=== PATIENT | male | born 1965 | race Caucasian/White ===

== ENCOUNTER 2020-04-26 12:55 | Emergency (ER) | payer OTHER, SELFPAY ==
[2020-04-26 12:59] VITALS: BP 189/107; PULSE 83; RESP 16; TEMP 36.9; O2SAT 99; BMI 31.4
--- NOTE | 2020-04-26 13:04 | DI.RAD.S_ITS ---
PROCEDURE: XR SHOULDER RT MIN 2V INDICATIONS: fall TECHNIQUE: 3 views of the shoulder were acquired. COMPARISON: None. FINDINGS: Bones: No fractures or dislocations. No suspicious bony lesions. Visualized ribs appear intact. Periarticular osteophyte formation at the acromioclavicular and glenohumeral joints. Soft tissues: No suspicious soft tissue calcifications. IMPRESSION: Osteoarthritis. No acute fracture. No osseous lesion. If symptoms and/or clinical suspicion for pathology persist, further assessment with repeat, or advanced imaging (e.g., CT, MRI, or bone scan) may be helpful for further assessment. Dictated by: Dmitry Gamble M.D. on 04/26/2020 at 12:37 Approved by: Dmitry Gamble M.D. on 04/26/2020 at 12:37
[2020-04-26] MEDS: CYCLOBENZAPRINE 10 MG TABLET PO (14:11)
[2020-04-26] MEDS: KETOROLAC 60 MG/2 ML VIAL 30 MG IM (14:12)
--- NOTE | 2020-04-26 14:37 | ED_ITS ---
HPI - Extremity Injury (Upper) <CAYETANO Wynne - Last Filed: 04/26/20 19:44> General Chief Complaint: Extremity Injury, Upper Stated Complaint: Rt shoulder pain Time Seen by Provider: 04/26/20 13:50 Source: patient Mode of arrival: Ambulatory Limitations: no limitations History of Present Illness HPI narrative: The patient is a 55-year-old male nonsmoker who denies pertinent medical history presents with a chief complaint of right shoulder pain. He states he slipped off a chair backwards yesterday, landed directly on his right shoulder. Today is decreased range of motion and pain. He did not pass out, did not hit his head, denies any neck or back pain. He took ibuprofen 800 mg last night for his pain, but ran out of his prescription at that time. He does have history of an injury to his right shoulder. Related Data Previous Rx's Medication Instructions Recorded cyclobenzaprine 10 mg PO TID PRN #20 tab 04/26/20 ketorolac 10 mg PO TID PRN #15 tab 04/26/20 Allergies Allergy/AdvReac Type Severity Reaction Status Date / Time No Known Drug Allergies Allergy Verified 04/26/20 13:03 Review of Systems <[facility] - Last Filed: 04/26/20 19:44> Review of Systems Narrative: GENERAL: Denies chills, fatigue, malaise, fever, sweats. HEENT: Denies sinus pain, ear pain, sore throat, difficulty swallowing, dizziness. RESPIRATORY: Denies dyspnea, cough, wheezing, hemoptysis, sputum. CARDIOVASCULAR: Denies chest pain, palpitations, orthopnea, edema, GASTROINTESTINAL: Denies nausea, vomiting, abdominal pain, diarrhea, constipation, melena. : Denies dysuria, frequency, incontinence, hematuria, urinary retention. MUSCULOSKELETAL: See HPI SKIN: Denies rash, skin lesions, or other NEUROLOGIC: Denies weakness, headache, numbness, change in speech, confusion, seizures, incoordination. PSYCHIATRIC: No concerning psychosocial issues. 12 point review of systems is negative except for those stated above Patient History <CAYETANO Wynne - Last Filed: 04/26/20 19:44> Social History Smoking Status: Never smoker Smoking Status: Never smoker alcohol intake frequency: 0-2 drinks per day Substance Use Type: does not use Exam <RUBEN Wynne-[facility] - Last Filed: 04/26/20 19:44> Narrative Exam Narrative: GENERAL: This is a well-nourished, well-developed patient, in no acute distress HEAD: Atraumatic. Normocephalic. No temporal or scalp tenderness. EYES: Pupils equal round and reactive. Extraocular motions intact. No scleral icterus. No injection or drainage. ENT: Nose without bleeding, purulent drainage or septal hematoma. Wearing mask. Airway patent. NECK: Trachea midline. No JVD or lymphadenopathy. Supple, nontender, no meningeal signs. CARDIOVASCULAR: Regular rate and rhythm RESPIRATORY: No cough. No increased respiratory effort. No accessory muscle use. EXTREMITIES: Positive right radial pulse. Able to pronate supinate right arm. Capillary refill less than 2 seconds all fingers right hand. Able to extend and flex shoulder to approximately 30-45 degrees each. Decreased horizontal extension noted. Passive range of motion full. BACK: Nontender without deformity or crepitance. No flank tenderness. No pain to CT or L-spine palpation. NEURO: AOx3. SKIN: No rash or erythema on visible skin no erythema ecchymosis laceration or abrasion noted right shoulder. Initial Vital Signs Initial Vital Signs: Vital Signs Temperature 98.5 F 04/26/20 12:59 Pulse Rate 83 04/26/20 12:59 Respiratory Rate 16 04/26/20 12:59 Blood Pressure 189/107 H 04/26/20 12:59 Pulse Oximetry 99 04/26/20 12:59 <Oseas Nunez MD - Last Filed: 04/26/20 19:47> Initial Vital Signs Initial Vital Signs: Vital Signs Temperature 98.5 F 04/26/20 12:59 Pulse Rate 83 04/26/20 12:59 Respiratory Rate 16 04/26/20 12:59 Blood Pressure 189/107 H 04/26/20 12:59 Pulse Oximetry 99 04/26/20 12:59 Scores <LENNOX Wynne - Last Filed: 04/26/20 19:44> GCS [place] coma scale eye opening: Spontaneous [place] coma scale verbal response: Orientated [place] coma scale motor response: Obey commands [place] coma scale total score: 15 Nexus Score for C-Spine Focal Neurologic deficit present: No Midline spinal tenderness present: No Altered level of conciousness present: No Intoxication present: No Distracting Injury Present: No Nexus Criteria for C-spine: 0 Course <LENNOX Wynne - Last Filed: 04/26/20 19:44> Orders Ordered: ED Orders 04/26/20 13:04 XR shoulder RT min 2V Stat Discontinued Medications Cyclobenzaprine HCl (Flexeril) 10 mg PO NOW ONE Stop: 04/26/20 14:06 Last Admin: 04/26/20 14:11 Dose: 10 mg Documented by: ADARSH Ketorolac Tromethamine (Toradol) 30 mg IM NOW ONE Stop: 04/26/20 14:06 Last Admin: 04/26/20 14:12 Dose: 30 mg Documented by: ADARSH Vital Signs Vital signs: Vital Signs - 8 hr 04/26/20 12:59 04/26/20 14:44 Temperature 98.5 F Pulse Rate 83 89 Respiratory Rate 16 14 Blood Pressure 189/107 H 151/82 H Pulse Oximetry 99 99 <Oseas Nunez MD - Last Filed: 04/26/20 19:47> Orders Ordered: ED Orders 04/26/20 13:04 XR shoulder RT min 2V Stat Discontinued Medications Cyclobenzaprine HCl (Flexeril) 10 mg PO NOW ONE Stop: 04/26/20 14:06 Last Admin: 04/26/20 14:11 Dose: 10 mg Documented by: ADARSH Ketorolac Tromethamine (Toradol) 30 mg IM NOW ONE Stop: 04/26/20 14:06 Last Admin: 04/26/20 14:12 Dose: 30 mg Documented by: ADARSH Vital Signs Vital signs: Vital Signs - 8 hr 04/26/20 12:59 04/26/20 14:44 Temperature 98.5 F Pulse Rate 83 89 Respiratory Rate 16 14 Blood Pressure 189/107 H 151/82 H Pulse Oximetry 99 99 MDM - Extremity Injury (Upper) <LENNOX Wynne - Last Filed: 04/26/20 19:44> Imaging Data Extremity x-ray #1: Radiologist's Impression: [address] [place] [id number] XRay Report Signed Patient: Eduard Dahl LMR#: [id number] : 1965Acct:[id number] Age/Sex: 55 / MDate of Service: 04/26/20 Loc: ED Accession Number: [id number] Procedure: XR shoulder RT min 2V Ordering Provider: Oseas Nunez MD PROCEDURE: XR SHOULDER RT MIN 2V INDICATIONS: fall TECHNIQUE: 3 views of the shoulder were acquired. COMPARISON: None. FINDINGS: Bones: No fractures or dislocations. No suspicious bony lesions. Visualized ribs appear intact. Periarticular osteophyte formation at the acromioclavicular and glenohumeral joints. Soft tissues: No suspicious soft tissue calcifications. IMPRESSION: Osteoarthritis. No acute fracture. No osseous lesion. If symptoms and/or clinical suspicion for pathology persist, further assessment with repeat, or advanced imaging (e.g., CT, MRI, or bone scan) may be helpful for further assessment. Dictated by: Dmitry Gamble M.D. on 04/26/2020 at 12:37 Approved by: Dmitry Gamble M.D. on 04/26/2020 at 12:37 [facility] Narrative Medical decision making narrative: The patient is a 55-year-old male who presents with a chief complaint of right shoulder pain after falling out of a chair last night. He did not hit his head, has no neurological symptoms, C- spine cleared by nexus criteria. He is alert oriented. Neurovascularly intact throughout stay in the emergency department. His shoulder x-ray shows no acute findings, patient does have some resumed range of motion. Feels improved at the above-stated therapies so I sent him prescriptions. I discussed at length the importance of following up with primary care provider in the next few days as he may need further imaging and/or physical therapy. Patient have no questions or concerns upon discharge and states understanding of return precautions as well as follow-up care. Discharge Plan Departure Patient Disposition: Home Clinical Impression: Acute pain of right shoulder, Muscle spasm Discharge Date/Time: 04/26/20 14:44 Instructions: DI for Shoulder Pain, DI for Muscle Spasm Activity Restrictions/Additional Instructions: As I discussed, your x-ray shows no acute fracture. This does not rule out a soft tissue injury such as a ligament or tendon injury. It is important that you follow up with primary care provider, especially if worsening or no improvement. There can be fractures that did not show up on initial x-ray. I have given you a prescription of Toradol. This is an NSAID. Do not combine it with other NSAIDs such as Aleve or ibuprofen. I suggest taking it with some food, as it can irritate your stomach. I also sent in a prescription of cyclobenzaprine, which is a muscle relaxant. Please do not take this and drive as can be sedating. Do not combine with any other sedating agents. Please come back to the emergency department for any acute concerns Please follow-up with primary care provider in the next few days. Prescriptions: New cyclobenzaprine 10 mg tablet 10 mg PO TID PRN (Reason: muscle spasm) Qty: 20 RF: 0 ketorolac 10 mg tablet 10 mg PO TID PRN (Reason: pain) Qty: 15 RF: 0 Referrals: Cristofer Marquez MD [Primary Care Provider] -
[2020-04-26 14:44] VITALS: BP 151/82; PULSE 89; RESP 14; O2SAT 99
== END 2020-04-26 14:44 | disposition home or self-care (01) ==
PROVIDERS: Emergency Provider Nurse Practitioner Family; PCP Internal Medicine
DX: M25.511 Pain in right shoulder (principal); M62.838 Other muscle spasm; W07.XXXA Fall from chair, initial encounter
CPT/HCPCS: 73030; 96372; 99283; J1885

== ENCOUNTER 2022-02-28 09:40 | Emergency (ER) | payer OTHER, SELFPAY ==
[2022-02-28 09:46] VITALS: BP 196/92
[2022-02-28 09:47] VITALS: PULSE 87; O2SAT 99
[2022-02-28 09:58] VITALS: BP 196/92; PULSE 87; RESP 18; TEMP 36.9; O2SAT 100; BMI 33.9
--- NOTE | 2022-02-28 10:09 | ED_ITS ---
HPI - Back Pain/Injury General Chief Complaint: Back Pain/Injury Stated Complaint: Back pain Time Seen by Provider: 02/28/22 09:57 Source: patient and family Mode of arrival: Ambulatory Limitations: no limitations History of Present Illness HPI Narrative: This is a 56-year-old male who comes to the emergency department with complaint of right-sided low back pain which started about a week ago after raking doing s [employer] work and then riding in a recreational vehicle or car for some time. Patient states pains been slowly increasing over time. He states sudden quick movements exacerbated seems to be localized to this area little radiation down towards the buttock and around towards the anterior groin. Patient has had mild symptoms in the past but not this significant. Denies any fevers or chills. No chest pain or shortness of breath, no nausea or vomiting. No fecal or bladder incontinence. Patient has not had any retention. He denies any paresthesias except in little bit in the left leg. Patient denies any weakness. He has been taking ibuprofen 800 mg every 8 hours and cyclobenzaprine for the last several days after calling the physician hotline for his primary care. He has not had any prior back surgeries. He takes some medication including escitalopram. No prior back surgeries. No other surgeries. No known drug allergies. No tobacco, 1 alcoholic drink daily, no illicit. He is accompanied by his family today. Related Data Previous Rx's Medication Instructions Recorded cyclobenzaprine 10 mg tablet 10 mg PO TID PRN #20 tab 04/26/20 ketorolac 10 mg tablet 10 mg PO TID PRN #15 tab 04/26/20 hydrocodone 5 mg-acetaminophen 325 1 tab PO Q6H PRN #10 tab 02/28/22 mg tablet prednisone 20 mg tablet 20 mg PO DAILY #5 tab 02/28/22 Allergies Allergy/AdvReac Type Severity Reaction Status Date / Time No Known Drug Allergies Allergy Verified 02/28/22 09:46 Review of Systems Review of Systems ROS Unobtainable: All systems reviewed & are unremarkable except as noted in HPI and below Patient History Social History Smoking Status: Never smoker Smoking Status: Never smoker alcohol intake frequency: 0-2 drinks per day Alcohol type: hard liquor Substance Use Type: does not use Exam Narrative Exam Narrative: GENERAL: Alert and oriented x three, male in [id number] distress. Patient is up ambulating in the room frequently trying to find position of comfort. HEENT: Head normocephalic, atraumatic, EOMI, pupils reactive, face symmetric, moist mucous membranes NECK: Supple, full range of motion CARDIOVASCULAR: Regular rate and rhythm without murmurs, rubs or gallops. RESPIRATORY: Breath sounds equal bilaterally, no wheezes rales or rhonchi. ABDOMEN: Soft, nontender. Normoactive bowel sounds all 4 quadrants. No guarding or rebound, rigidity, no mass : No CVA tenderness BACK: No cervical, thoracic or lumbar vertebral point tenderness. Patient has decreased range of motion. Patient states pain is localized more just lateral to the right at the L4 region but is not worsened on palpation. Patient pulled himself slightly to the right.. Rectal exam is deferred. Muscle strength is 5/5 in lower extremities, DTRs are 2/4 and lower extremities. Dorsalis pedis and tibialis pulses are 2+ and lower extremities. Sensation is intact in the lo wer extremities. Patient leans to the right but otherwise normal gait. EXTREMITIES: Normal range of motion, no clubbing or edema. Neurovascularly intact NEUROLOGICAL: Cranial nerves II through XII grossly intact. Moving all extremities SKIN: Warm, dry, no petechiae, no rashes or lesions. Initial Vital Signs Initial Vital Signs: Vital Signs Blood Pressure 196/92 H 02/28/22 09:46 Course Orders Ordered: ED Orders 02/28/22 10:43 XR lumbar spine 2-3V Stat Discontinued Medications Ketorolac Tromethamine (Ketorolac 30 Mg/Ml Vial) 30 mg IM NOW ONE Stop: 02/28/22 10:44 Last Admin: 02/28/22 11:05 Dose: 30 mg Documented by: ERASTO Reevaluation(s) Reevaluation #1: Patient still has some pain but is able to lay back in bed he feels much more comfortable and appears much more comfortable. Reviewed his findings today, return precautions and follow-up plan. Time: 12:26 Vital Signs Vital signs: Vital Signs - 8 hr 02/28/22 12:31 02/28/22 12:33 Pulse Rate 72 Blood Pressure 171/107 H Pulse Oximetry 96 MDM - Back Pain/Injury Imaging Data Lspine xray: Radiologist's Impression: [facility] [address] [place] [address] XRay Report Signed Patient: Eduard Dahl MR#: [id number] : 1965 Acct:[id number] Age/Sex: 56 / M Date of Service: 02/28/22 Loc: ED Accession Number: [id number] ?? Procedure: XR lumbar spine 2-3V Ordering Provider: Esther Marcano D.O. PROCEDURE:? XR LUMBAR SPINE 2-3V ? INDICATIONS:? right Lumbar pain just lateral to L4 region. radiates to hip ? TECHNIQUE:? 3 views of the lumbar spine were acquired.? ? COMPARISON:? None. ? FINDINGS:? ? Bones:? 5 [id number] vertebrae are present.? There is normal bony alignment.? No vertebral body compression fractures.? No suspicious bony lesions.? Mild degenerative changes. ? Soft tissues:? Overlying bowel gas pattern is normal.? No suspicious soft tissue calcifications.? ? IMPRESSION:? No acute abnormality. ? ? Dictated by: Derrick Jones M.D. on 02/28/2022 at 11:14 ? ? Approved by: Derrick Jones M.D. on 02/28/2022 at 11:15?? MDM Narrative Medical decision making narrative: This is a 56-year-old male who comes emergency department with acute on chronic low back pain. Patient has tried NSAIDs with cyclobenzaprine with minimal improvement. Pain seems to be more localized to lateral to L4 region and radiating around. Plan to continue NSAIDs, steroids and narcotic pain control. Patient has been taking Flexeril with minimal improvement. No red flag symptoms. Return precautions discussed. Discharge Plan Departure Patient Disposition: Home Clinical Impression: Low back pain Instructions: DI for Low Back Pain Activity Restrictions/Additional Instructions: Follow-up with your physician for recheck if your symptoms are not shortly improving. Your imaging today shows no major changes. You may continue ibuprofen as prescribed. I would recommend a short course of steroids to decrease any inflammation in the nerves, take this medication with food. You may take narcotic pain medication 1 tablet every 6 hours as needed. This medication can make you sleepy do not drive, perform hazardous activities or make any major decisions while taking it. This medication will make you constipated please take a stool softener once to twice daily until stools are soft and regular. Prescription sent to [facility] in [place]. Please return for rapidly worsening symptoms, new weakness numbness, loss of sensation, loss of bowel or bladder control, inability to lift or move her lower extremity or other new or concerning symptoms. Prescriptions: New prednisone 20 mg tablet 20 mg PO DAILY Qty: 5 0RF hydrocodone-acetaminophen 5-325 mg tablet 1 tab PO Q6H PRN (Reason: pain) Qty: 10 0RF No Action cyclobenzaprine 10 mg tablet 10 mg PO TID PRN (Reason: muscle spasm) Qty: 20 0RF ketorolac 10 mg tablet 10 mg PO TID PRN (Reason: pain) Qty: 15 0RF Referrals: Cristofer Marquez MD [Primary Care Provider] -
--- NOTE | 2022-02-28 10:43 | DI.RAD.S_ITS ---
PROCEDURE: XR LUMBAR SPINE 2-3V INDICATIONS: right Lumbar pain just lateral to L4 region. radiates to hip TECHNIQUE: 3 views of the lumbar spine were acquired. COMPARISON: None. FINDINGS: Bones: 5 [id number] vertebrae are present. There is normal bony alignment. No vertebral body compression fractures. No suspicious bony lesions. Mild degenerative changes. Soft tissues: Overlying bowel gas pattern is normal. No suspicious soft tissue calcifications. IMPRESSION: No acute abnormality. Dictated by: Derrick Jones M.D. on 02/28/2022 at 11:14 Approved by: Derrick Jones M.D. on 02/28/2022 at 11:15
[2022-02-28] MEDS: KETOROLAC 30 MG/ML VIAL IM (11:05)
[2022-02-28 12:31] VITALS: PULSE 72; O2SAT 96
[2022-02-28 12:33] VITALS: BP 171/107
== END 2022-02-28 12:39 | disposition home or self-care (01) ==
PROVIDERS: Emergency Provider Emergency Medicine; PCP Internal Medicine
DX: M54.50 Low back pain, unspecified (principal)
CPT/HCPCS: 72100; 96372; 99283; J1885

== ENCOUNTER → 2022-10-27 08:21 | Outpatient (CLI) | payer OTHER, SELFPAY ==
--- NOTE | 2022-10-27 | DI.US.S_ITS ---
PROCEDURE: US ABDOMEN LIMITED INDICATIONS: PELVIC AND PERINEAL PAIN TECHNIQUE: Real-time focused scanning was performed of the abdomen, with image documentation. COMPARISON: None. FINDINGS: A right inguinal hernia is seen containing fat and possibly a short segment of bowel. The hernia is partially reducible. Abdominal wall defect measures up to 3.2 cm. IMPRESSION: Partially reducible right inguinal hernia containing fat and possibly a short segment of bowel. Approved by: Anand Vasquez M.D. on 10/27/2022 at 12:12
== END ==
PROVIDERS: PCP Internal Medicine; Referring Provider Nurse Practitioner Family; Visit Provider Physician Assistant
DX: K40.30 Unilateral inguinal hernia, with obstruction, without gangrene, not specified as recurrent (principal); R10.2 Pelvic and perineal pain
CPT/HCPCS: 76705

== ENCOUNTER 2024-09-30 03:42 | Emergency (ER) | payer OTHER, SELFPAY ==
[2024-09-30] VITALS (15 sets, daily range): BP systolic 166–196; BP diastolic 86–107; PULSE 70–91; RESP 9–24; TEMP 36.6; O2SAT 96–99; BMI 31.1
--- NOTE | 2024-09-30 03:46 | ED.CHESTPAIN ---
HPI - Chest Pain <Esther Marcano DO - Last Filed: 10/01/24 04:27> General Chief Complaint: Chest Pain Stated Complaint: HBP, chest pain Time Seen by Provider: 09/30/24 03:45 Source: patient, RN notes reviewed and old records reviewed Mode of arrival: Family Vehicle Limitations: no limitations History of Present Illness HPI narrative: 59-year-old male history of anxiety presents with complaint of right-sided chest pain for the past day patient states it has come and gone only been right-sided. Not reproducible. 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 He states it does not to be any worse with exertion. Nothing seems to make it better or worse. Patient states it does not really radiate anywhere such as his neck back or belly. No syncope. No fevers no cold cough or congestion. No shortness of breath. No nausea or vomiting. No new swelling of extremities. Patient notes he had some nausea and felt unwell about a week ago but never had any fevers or other symptoms did not have any chest pain at that time. Does note some tingling in his fingers bilaterally but has had this before. Patient states he is on bupropion and alprazolam, states had a prior hernia repair 2 or 3 years ago. No known drug allergies. No regular tobacco. Has a 1 alcoholic drink daily, no recreational drugs. No long distance travel. He states parents had pacemakers but no other reported cardiac, pulmonary or embolic history. Patient states he woke up this morning symptoms and presents to be evaluated he does note that he had an office visit with primary care in the last week was noted to be hypertensive and told to monitor his blood pressure. He notes he has had intermittent elevations to 160s but sometimes normotensive. Related Data Previous Rx's Medication Instructions Recorded cyclobenzaprine 10 mg tablet 10 mg PO TID PRN muscle spasm #20 04/26/20 tabs ketorolac 10 mg tablet 10 mg PO TID PRN pain #15 tabs 04/26/20 hydrocodone 5 mg-acetaminophen 325 1 tab PO Q6H PRN pain #10 tabs 02/28/22 mg tablet prednisone 20 mg tablet 20 mg PO DAILY #5 tabs 02/28/22 Allergies Allergy/AdvReac Type Severity Reaction Status Date / Time No Known Drug Allergies Allergy Verified 09/30/24 03:50 Review of Systems <Esther Marcano DO - Last Filed: 10/01/24 04:27> Review of Systems ROS Unobtainable: All systems reviewed & are unremarkable except as noted in HPI and below Patient History <Esther Marcano DO - Last Filed: 10/01/24 04:27> Social History Smoking Status: Never smoker Smoking Status: Never smoker alcohol intake frequency: 0-2 drinks per day Alcohol type: hard liquor Exam <Esther Marcano DO - Last Filed: 10/01/24 04:27> Narrative Exam Narrative: GENERAL: Alert and oriented x three, male in mild distress. No diaphoresis HEENT: Head normocephalic, atraumatic, EOMI, pupils reactive, face symmetric, moist mucous membranes NECK: Supple, full range of motion CARDIOVASCULAR: Regular rate and rhythm without murmurs, rubs or gallops. No JVD. No edema bilateral lower extremities. No reproducible chest pain on exam. RESPIRATORY: Breath sounds equal bilaterally, no wheezes rales or rhonchi. No tachypnea accessory muscle use. Speaks in full sentences. ABDOMEN: Soft, nontender. Normoactive bowel sounds all 4 quadrants. No guarding or rebound, rigidity, no mass : No CVA tenderness EXTREMITIES: Normal range of motion, no clubbing or edema. Neurovascularly intact NEUROLOGICAL: Cranial nerves II through XII grossly intact. Moving all extremities SKIN: Warm, dry, no petechiae, no rashes or lesions. Initial Vital Signs Initial Vital Signs: Vital Signs Temperature 97.9 F 09/30/24 03:43 Pulse Rate 85 09/30/24 03:43 Respiratory Rate 19 09/30/24 03:43 Blood Pressure 195/107 H 09/30/24 03:43 Pulse Oximetry 97 09/30/24 03:43 Oxygen Delivery Method Room Air 09/30/24 03:43 <Socorro Baires DO - Last Filed: 09/30/24 09:27> Initial Vital Signs Initial Vital Signs: Vital Signs Temperature 97.9 F 09/30/24 03:43 Pulse Rate 85 09/30/24 03:43 Respiratory Rate 19 09/30/24 03:43 Blood Pressure 195/107 H 09/30/24 03:43 Pulse Oximetry 97 09/30/24 03:43 Oxygen Delivery Method Room Air 09/30/24 03:43 Scores <Esther Marcano, - Last Filed: 10/01/24 04:27> HEART Score Heart Score Total: 2 <Socorro Baires, - Last Filed: 09/30/24 09:27> HEART Score Heart Score history: Slightly Suspicious Heart Score EKG: Normal Heart Score Age: 45-64 years old Heart Score risk factors: 1-2 risk factors Heart Score troponin: < or = to normal limit Heart Score Total: 2 Course <Esther Marcano, - Last Filed: 10/01/24 04:27> Orders Ordered: ED Orders 09/30/24 03:49 XR chest 1V Stat EKG-12 Lead Stat 09/30/24 03:50 Complete Blood Count AUTO DIFF Stat Comprehensive Metabolic Panel Stat D Dimer Stat Lipase Stat Magnesium Stat NT-proBNP (BNP-Adult 18+) Stat PTT Partial Thromboplastin Tank Stat Prothrombin Time INR Stat Troponin & CK Cardiac Panel Stat 09/30/24 06:30 Trop I [Troponin I] Stat Vital Signs Vital signs: Vital Signs - 8 hr 09/30/24 03:43 09/30/24 03:47 09/30/24 03:47 Temperature 97.9 F Pulse Rate 85 91 H Respiratory Rate 19 24 Blood Pressure 195/107 H 195/107 H Pulse Oximetry 97 98 Oxygen Delivery Method Room Air 09/30/24 04:00 09/30/24 04:01 09/30/24 04:01 Temperature Pulse Rate 79 79 Respiratory Rate 24 18 Blood Pressure 181/98 H Pulse Oximetry 97 98 Oxygen Delivery Method 09/30/24 04:30 09/30/24 04:30 09/30/24 04:59 Temperature Pulse Rate 73 70 Respiratory Rate 10 L 12 Blood Pressure 189/90 H Pulse Oximetry 98 98 Oxygen Delivery Method 09/30/24 05:00 09/30/24 05:00 09/30/24 05:10 Temperature Pulse Rate 74 Respiratory Rate 11 L Blood Pressure 185/87 H 178/91 H Pulse Oximetry 97 Oxygen Delivery Method 09/30/24 05:10 09/30/24 05:30 09/30/24 05:31 Temperature Pulse Rate 80 72 73 Respiratory Rate 23 10 L Blood Pressure Pulse Oximetry 97 98 99 Oxygen Delivery Method 09/30/24 05:31 09/30/24 06:00 09/30/24 06:00 Temperature Pulse Rate 81 Respiratory Rate 9 L Blood Pressure 191/88 H 181/92 H Pulse Oximetry 98 Oxygen Delivery Method 09/30/24 06:30 09/30/24 06:30 09/30/24 06:41 Temperature Pulse Rate 81 82 Respiratory Rate 11 L 13 Blood Pressure 196/104 H Pulse Oximetry 98 99 Oxygen Delivery Method 09/30/24 06:41 09/30/24 07:00 09/30/24 07:00 Temperature Pulse Rate 86 Respiratory Rate 11 L Blood Pressure 194/96 H 180/92 H Pulse Oximetry 97 Oxygen Delivery Method 09/30/24 07:30 09/30/24 07:30 Temperature Pulse Rate 81 Respiratory Rate 10 L Blood Pressure 166/86 H Pulse Oximetry 96 Oxygen Delivery Method Room Air <Socorro Baires, DO - Last Filed: 09/30/24 09:27> Orders Ordered: ED Orders 09/30/24 03:49 XR chest 1V Stat EKG-12 Lead Stat 09/30/24 03:50 Complete Blood Count AUTO DIFF Stat Comprehensive Metabolic Panel Stat D Dimer Stat Lipase Stat Magnesium Stat NT-proBNP (BNP-Adult 18+) Stat PTT Partial Thromboplastin Tank Stat Prothrombin Time INR Stat Troponin & CK Cardiac Panel Stat 09/30/24 06:30 Trop I [Troponin I] Stat Vital Signs Vital signs: Vital Signs - 8 hr 09/30/24 03:43 09/30/24 03:47 09/30/24 03:47 Temperature 97.9 F Pulse Rate 85 91 H Respiratory Rate 19 24 Blood Pressure 195/107 H 195/107 H Pulse Oximetry 97 98 Oxygen Delivery Method Room Air 09/30/24 04:00 09/30/24 04:01 09/30/24 04:01 Temperature Pulse Rate 79 79 Respiratory Rate 24 18 Blood Pressure 181/98 H Pulse Oximetry 97 98 Oxygen Delivery Method 09/30/24 04:30 09/30/24 04:30 09/30/24 04:59 Temperature Pulse Rate 73 70 Respiratory Rate 10 L 12 Blood Pressure 189/90 H Pulse Oximetry 98 98 Oxygen Delivery Method 09/30/24 05:00 09/30/24 05:00 09/30/24 05:10 Temperature Pulse Rate 74 Respiratory Rate 11 L Blood Pressure 185/87 H 178/91 H Pulse Oximetry 97 Oxygen Delivery Method 09/30/24 05:10 09/30/24 05:30 09/30/24 05:31 Temperature Pulse Rate 80 72 73 Respiratory Rate 23 10 L Blood Pressure Pulse Oximetry 97 98 99 Oxygen Delivery Method 09/30/24 05:31 09/30/24 06:00 09/30/24 06:00 Temperature Pulse Rate 81 Respiratory Rate 9 L Blood Pressure 191/88 H 181/92 H Pulse Oximetry 98 Oxygen Delivery Method 09/30/24 06:30 09/30/24 06:30 09/30/24 06:41 Temperature Pulse Rate 81 82 Respiratory Rate 11 L 13 Blood Pressure 196/104 H Pulse Oximetry 98 99 Oxygen Delivery Method 09/30/24 06:41 09/30/24 07:00 09/30/24 07:00 Temperature Pulse Rate 86 Respiratory Rate 11 L Blood Pressure 194/96 H 180/92 H Pulse Oximetry 97 Oxygen Delivery Method 09/30/24 07:30 09/30/24 07:30 Temperature Pulse Rate 81 Respiratory Rate 10 L Blood Pressure 166/86 H Pulse Oximetry 96 Oxygen Delivery Method Room Air MDM - Chest Pain <Esther Marcano, DO - Last Filed: 10/01/24 04:27> Lab Data 09/30/24 03:50 09/30/24 03:50 Labs: Lab Results 09/30/24 09/30/24 Range/Units 03:50 06:30 WBC 7.0 (4.5-11.0) X10^3/uL RBC 5.19 (4.5-5.9) X10^6/uL Hgb 15.5 (13.5-17.5) g/dL Hct 46.1 (41-53) % MCV 88.9 (80-100) fL MCH 29.9 (26-34) PG MCHC 33.6 (30-36) % RDW 13.3 (11.6-14.8) % Plt Count 261 (150-400) X10^3/uL Neut % (Auto) 48.7 L (50-75) % Lymph % (Auto) 35.4 (25-40) % [place] % (Auto) 10.3 (3-14) % Eos % (Auto) 4.1 H (2-4) % Baso % (Auto) 1.5 (0-2) % Neut # (Auto) 3400 (9210-9451) /uL Lymph # (Auto) 2500 (0237-8512) /uL [place] # (Auto) 700 (0-900) /uL Eos # (Auto) 300 (0-450) /uL Baso # (Auto) 100 (0-100) /uL PT 11.1 (9.4-12.5) SECONDS INR 1.0 (0.9-1.3) APTT 36 (25.1-36.5) SECONDS D-Dimer 332 (<500) ng/ml Sodium 138 (137-145) mmol/L Potassium 4.5 (3.4-5.1) mmol/L Chloride 105 (98-107) mmol/L Carbon Dioxide 25 (22-32) mmol/L BUN 20 (9-20) mg/dL Creatinine 1.14 (0.66-1.25) mg/dL Estimated GFR > 60 (>60) mL/min BUN/Creatinine Ratio 17.5 (6-22) Glucose 110 (80-110) mg/dL Calcium 8.9 (8.4-10.2) mg/dL Magnesium 2.1 (1.6-2.3) mg/dL Total Bilirubin 0.7 (0.2-1.3) mg/dL AST 51 (17-59) IU/L ALT 30 (<50) IU/L Alkaline Phosphatase 37 L (38-126) U/L Total Creatine Kinase 224 H (55-170) U/L Troponin I < 0.012 < 0.012 (0.01-0.034) ng/mL NT-Pro-B Natriuret Pep 101 (<125) pg/mL Total Protein 7.7 (6.3-8.2) g/dL Albumin 4.6 (3.5-5.0) g/dL Globulin 3.1 (1.7-4.1) g/dL Albumin/Globulin Ratio 1.5 (1.0-2.8) Lipase 55 (23-300) U/L Imaging Data Chest x-ray: Radiologist's Impression: Frontal view of the chest shows no of airspace consolidation, no pneumothorax, pleural effusion or congestive changes. Cardiovascular silhouette is normal. Spondylitic changes of the thoracic spine. ECG Data Attestation: I personally reviewed and interpreted this ECG as follows: Prior ECG tracings: available for review Interpretation: Sinus rhythm rate 84 MT 154 QRS of 90 QTC of 453, nonspecific change. No priors for comparison. EKG 2. Sinus rhythm rate of 78 MT 146 QRS of 94 QTC 442, no new elevation or depression. EKG has no acute dynamic changes from 1st to 2nd. MDM Narrative Medical decision making narrative: 59-year-old complaint of chest pain, patient is hypertensive here initially on arrival. EKG shows sinus rhythm nonspecific change no priors for comparison. Repeat EKG appears similar. Labs CBC shows normal white count hemoglobin and platelets. Electrolytes are normal BUN 20 creatinine is 1.14 glucose is 110 Mag is 2.1 bilirubin is 0.7 AST is 51 ALT is 30 alk-phos is 37 total CK is 224. Lipase is 55 troponin is less than 0.012. BNP is 101. Repeat troponin D-dimer is negative at 332. INR 1, Ptt 36. Chest x-ray no acute cardiopulmonary. Spondylitic changes spine. <Socorro Baires, - Last Filed: 09/30/24 09:27> Lab Data Labs: Lab Results 09/30/24 09/30/24 Range/Units 03:50 06:30 WBC 7.0 (4.5-11.0) X10^3/uL RBC 5.19 (4.5-5.9) X10^6/uL Hgb 15.5 (13.5-17.5) g/dL Hct 46.1 (41-53) % MCV 88.9 (80-100) fL MCH 29.9 (26-34) PG MCHC 33.6 (30-36) % RDW 13.3 (11.6-14.8) % Plt Count 261 (150-400) X10^3/uL Neut % (Auto) 48.7 L (50-75) % Lymph % (Auto) 35.4 (25-40) % [place] % (Auto) 10.3 (3-14) % Eos % (Auto) 4.1 H (2-4) % Baso % (Auto) 1.5 (0-2) % Neut # (Auto) 3400 (7901-9036) /uL Lymph # (Auto) 2500 (8529-1226) /uL [place] # (Auto) 700 (0-900) /uL Eos # (Auto) 300 (0-450) /uL Baso # (Auto) 100 (0-100) /uL PT 11.1 (9.4-12.5) SECONDS INR 1.0 (0.9-1.3) APTT 36 (25.1-36.5) SECONDS D-Dimer 332 (<500) ng/ml Sodium 138 (137-145) mmol/L Potassium 4.5 (3.4-5.1) mmol/L Chloride 105 (98-107) mmol/L Carbon Dioxide 25 (22-32) mmol/L BUN 20 (9-20) mg/dL Creatinine 1.14 (0.66-1.25) mg/dL Estimated GFR > 60 (>60) mL/min BUN/Creatinine Ratio 17.5 (6-22) Glucose 110 (80-110) mg/dL Calcium 8.9 (8.4-10.2) mg/dL Magnesium 2.1 (1.6-2.3) mg/dL Total Bilirubin 0.7 (0.2-1.3) mg/dL AST 51 (17-59) IU/L ALT 30 (<50) IU/L Alkaline Phosphatase 37 L (38-126) U/L Total Creatine Kinase 224 H (55-170) U/L Troponin I < 0.012 < 0.012 (0.01-0.034) ng/mL NT-Pro-B Natriuret Pep 101 (<125) pg/mL Total Protein 7.7 (6.3-8.2) g/dL Albumin 4.6 (3.5-5.0) g/dL Globulin 3.1 (1.7-4.1) g/dL Albumin/Globulin Ratio 1.5 (1.0-2.8) Lipase 55 (23-300) U/L [facility] Narrative Medical decision making narrative: 59-year-old complaint of chest pain, patient is hypertensive here initially on arrival. EKG shows sinus rhythm nonspecific change no priors for comparison. Repeat EKG appears similar. Labs CBC shows normal white count hemoglobin and platelets. Electrolytes are normal BUN 20 creatinine is 1.14 glucose is 110 Mag is 2.1 bilirubin is 0.7 AST is 51 ALT is 30 alk-phos is 37 total CK is 224. Lipase is 55 troponin is less than 0.012. BNP is 101. Repeat troponin D-dimer is negative at 332. INR 1, Ptt 36. Chest x-ray no acute cardiopulmonary. Spondylitic changes spine. Dr. Baires patient signed out to me by Dr. Marcano seen evaluated patient. Patient has right-sided chest pain in the same part lasting for about 15 seconds coming and going. Not really reproducible with palpation. He says he was working on his car yesterday. It is nonradiating. He has been monitoring his blood pressure at home but also knows that he has pretty severe anxiety which he was seeing someone about. Blood work overall reassuring he is 2- troponins and negative D-dimer. I suspect this is musculoskeletal more like costochondritis. He has a heart score of 2. At this time recommend outpatient follow-up continue to check blood pressure at home Discharge Plan Departure Patient Disposition: Home Clinical Impression: Right-sided chest pain Instructions: DI for Atypical Chest Pain Activity Restrictions/Additional Instructions: Follow up with your physician for recheck. Please call today to set up a follow up appointment this week. Return for new or worsening chest pain, shortness of breath, lightheadedness or passing out, fevers, new swelling of your extremities, persistent vomiting or other new or concerning changes. Prescriptions: No Action prednisone 20 mg tablet 20 mg PO DAILY Qty: 5 0RF hydrocodone-acetaminophen 5-325 mg tablet 1 tab PO Q6H PRN (Reason: pain) Qty: 10 0RF cyclobenzaprine 10 mg tablet 10 mg PO TID PRN (Reason: muscle spasm) Qty: 20 0RF ketorolac 10 mg tablet 10 mg PO TID PRN (Reason: pain) Qty: 15 0RF Referrals: Cristofer Marquez MD [Primary Care Provider] - Stand Alone Forms: Patient Portal/API/Survey
--- NOTE | 2024-09-30 03:49 | EKG_ITS ---
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
--- NOTE | 2024-09-30 03:49 | DI.RAD.S_ITS ---
PROCEDURE: XR CHEST 1V INDICATIONS: chest pain TECHNIQUE: One view of the chest was acquired. COMPARISON: None. FINDINGS: Surgical changes and devices: None. Lungs and pleura: Lungs are clear. No pleural effusions or pneumothorax. Mediastinum: Mediastinal contours appear normal. Heart size is normal. Bones and chest wall: No suspicious bony lesions. Overlying soft tissues appear unremarkable. IMPRESSION: No acute cardiopulmonary abnormality is seen. Findings are concordant with preliminary interpretation provided by [facility]. Dictated by: Sim Crook M.D. on 09/30/2024 at 8:08 Approved by: Sim Crook M.D. on 09/30/2024 at 8:09
--- NOTE | 2024-09-30 03:58 | PC.NURSE ---
Patient reports increase in anxiety, recent conversations with PCP to up medications. Has been monitoring blood pressures at home. Maria Antonia woke up to go to restroom and didn't feel well, noted right side chest pain. no SOB.
[2024-09-30 04:03] LABS: Add Manual Diff / Slide Review NO; Basophils Absolute Auto 100 /uL (0-100); Basophils Percent Auto 1.5 % (0-2); Eosinophils Absolute Auto 300 /uL (0-450); Eosinophils Percent Auto 4.1 % (2-4); Hematocrit 46.1 % (41-53); Hemoglobin 15.5 g/dL (13.5-17.5); Lymphocytes Absolute Auto 2500 /uL (1100-4500); Lymphocytes Percent Auto 35.4 % (25-40); Mean Corpuscular HGB Conc 33.6 % (30-36); Mean Corpuscular Hemoglobin 29.9 PG (26-34); Mean Corpuscular Volume 88.9 fL (80-100); Monocytes Absolute Auto 700 /uL (0-900); Monocytes Percent Auto 10.3 % (3-14); Neutrophils Absolute Auto 3400 /uL (1500-7000); Neutrophils Percent Auto 48.7 % (50-75); Platelet Count 261 X10^3/uL (150-400); Red Blood Cell Count 5.19 X10^6/uL (4.5-5.9); Red Cell Distribution Width 13.3 % (11.6-14.8)
[2024-09-30 04:17] LABS: Alanine Aminotransferase 30 IU/L (<50); Albumin 4.6 g/dL (3.5-5.0); Albumin Globulin Ratio 1.5 (1.0-2.8); Alkaline Phosphatase 37 U/L (38-126); Aspartate Aminotransferase 51 IU/L (17-59); BUN Creatinine Ratio 17.5 (6-22); Bilirubin Total 0.7 mg/dL (0.2-1.3); Blood Urea Nitrogen 20 mg/dL (9-20); Calcium 8.9 mg/dL (8.4-10.2); Carbon Dioxide 25 mmol/L (22-32); Chloride 105 mmol/L (98-107); Creatine Kinase 224 U/L (55-170); Estimated Glomerular Filt Rate > 60 mL/min (>60); Globulin 3.1 g/dL (1.7-4.1); Glucose 110 mg/dL (80-110); Lipase 55 U/L (23-300); Magnesium 2.1 mg/dL (1.6-2.3); Potassium 4.5 mmol/L (3.4-5.1); Sodium 138 mmol/L (137-145); Total Protein 7.7 g/dL (6.3-8.2)
[2024-09-30 04:26] LABS: NT-proBNP (BNP-Adult 18+) 101 pg/mL (<125)
[2024-09-30 04:28] LABS: Prothrombin Time 11.1 SECONDS (9.4-12.5); Troponin I < 0.012 ng/mL (0.01-0.034)
[2024-09-30 04:29] LABS: HEMOLYSIS 124 (0-50)
[2024-09-30 04:30] LABS: D Dimer 332 ng/ml (<500)
[2024-09-30 04:31] LABS: PTT Partial Thromboplastin Tim 36 SECONDS (25.1-36.5)
--- NOTE | 2024-09-30 05:56 | EKG_ITS ---
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
[2024-09-30 07:04] LABS: Troponin I < 0.012 ng/mL (0.01-0.034)
== END 2024-09-30 07:58 | disposition home or self-care (01) ==
PROVIDERS: Emergency Medicine; Emergency Provider Emergency Medicine; PCP Internal Medicine
DX: R07.89 Other chest pain (principal); I10 Essential (primary) hypertension; Z95.0 Presence of cardiac pacemaker
CPT/HCPCS: 36415; 71045; 80053; 82550; 83690; 83735; 83880; 84484; 85025; 85379; 85610; 85730; 93005; 99284